=== PATIENT | male | born 2005 | race Caucasian/White ===

== ENCOUNTER 2025-01-27 08:49 | Emergency (ER) | payer MEDICAID, SELFPAY ==
[2025-01-27 09:13] VITALS: BP 124/81; PULSE 92; RESP 16; TEMP 37.4; O2SAT 98; BMI 30.5
--- NOTE | 2025-01-27 09:37 | EDNOTE_ITS ---
<Statement entered by Urvashi Callahan MD - 02/06/25 11:10> As co-signing physician, I was present and available for consult prn. I concur with the plan and care as documented by the midlevel provider. ED Animal Bite RME/HPI General Chief Complaint: Animal Bite Stated Complaint: CAT BITE Time Seen by Provider: 01/27/25 08:59 Arrival date/time: 01/27/25 08:49 20-year-old male presents to the emergency department a stating he was cleaning out a house and grabbed onto a cat when he grabbed the cat it bit him patient reports that he went to the primary care doctor today they gave him tetanus vaccination as well as a prescription for antibiotics and told him to come to the ER for possible rabies vaccinations. Limitations: no limitations Related Data Allergies Allergy/AdvReac Type Severity Reaction Status Date / Time No Known Allergies Allergy Unknown Uncoded 01/27/25 08:51 Review of Systems Review of Systems Systems Reviewed: All systems reviewed, normal except as documented Constitutional Constitutional: Reports system reviewed and no additional complaints, except as documented, Denies fever(s) and Denies headache(s) Eyes Eyes: Reports system reviewed and no additional complaints, except as documented and Denies blurry vision ENT Ears, Nose, Mouth, and Throat: Reports system reviewed and no additional complaints, except as documented, Denies headache(s), Denies nasal congestion and Denies nasal discharge Cardiovascular Cardiovascular: Reports system reviewed and no additional complaints, except as documented, Denies chest pain and Denies dyspnea Respiratory Respiratory: Reports system reviewed and no additional complaints, except as documented, Denies chest congestion, Denies cough and Denies dyspnea Gastrointestinal Gastrointestinal: Reports system reviewed and no additional complaints, except as documented and Denies abdominal pain Integumentary/Breasts Skin/Breast: Reports system reviewed and no additional complaints, except as documented, Denies rash and Reports other (Erythema left arm, cat bite) Neurologic Neurologic: Reports system reviewed and no additional complaints, except as doc umented, Reports as per HPI and Denies headache(s) Past Medical History Social History SMOKING STATUS: Never smoker ED Exam General Limitations: Present no limitations General appearance: Present alert and in no apparent distress Head Head exam: Present atraumatic Eye Eye exam: Present normal appearance, PERRL and EOMI ENT ENT exam: Present normal exam, normal oropharynx and mucous membranes moist Neck Neck exam: Present normal inspection, full ROM and trachea midline Chest Chest inspection: Present normal inspection and symmetric chest wall rise Respiratory Respiratory exam: Present normal lung sounds bilaterally Cardiovascular Cardiovascular exam: Present regular rate, normal rhythm and normal heart sounds Abdominal Exam Abdominal exam: Present soft and normal bowel sounds Extremities Exam Extremities exam: Present normal inspection and full ROM Back Exam Back exam: Present normal inspection and full ROM Neurological Exam Neurological exam: Present alert, oriented X3, CN II-XII intact, normal gait and reflexes normal; Absent motor sensory deficit Psychiatric Psychiatric exam: Present normal affect and normal mood Skin Skin exam: Present warm, dry and other (Erythema left arm, cat bite) Course Quality Measures none Orders Category Date Time Status Lidocaine 1% 20 ml [Xylocaine 1% 20 ML] Med 01/27/25 09:23 Discontinued 2.1 ml INFL X1 ONE cefTRIAXone [Rocephin] Med 01/27/25 09:23 Discontinued 1,000 mg IM X1 ONE Vital Signs Vital signs: Vital Signs Temperature 99.3 F 01/27/25 09:13 Pulse Rate 92 01/27/25 09:13 Respiratory Rate 16 01/27/25 09:13 Blood Pressure 124/81 01/27/25 09:13 Pulse Oximetry (%) 98 01/27/25 09:13 Oxygen Delivery Method Room Air 01/27/25 09:13 O2 saturation 98% room air within normal limits Animal Bite MDM Narrative MDM Narrative:: 20-year-old male presents to the emergency department a stating he was cleaning out a house and grabbed onto a cat when he grabbed the cat it bit him patient reports that he went to the primary care doctor today they gave him tetanus vaccination as well as a prescription for antibiotics and told him to come to the ER for possible rabies vaccinations. On exam patient peers of a cat bite to the left wrist redness is not circumferential I did have a discussion about rabies vaccinations patient declined rabies vaccinations today. I did order a Rocephin shot but patient also refused the Rocephin shot Explained to the patient that cat bites can become infected if symptoms persist or worsen must return immediately for evaluation Patient data External records reviewed:: [facility] [place] previous records Clinical information provided by:: patient Social determinants that could affect healthcare access:: none Patient has the following chronic illnesses:: None How is presenting disease/condition affected by chronic disease/condition?: no chronic disease Evaluation data The following diagnostics were reviewed and interpreted by me:: other (specify) Lab and/or radiology exams considered but not ordered:: Considered not indicated Interpretation Summary: N/A Medications / Prescriptions Medications or Prescriptions considered but not ordered:: Given Medication administrations:: Medication Administration History Discontinued Medications Ceftriaxone Sodium (Ceftriaxone Sod Inj 1,000 Mg Vial) 1,000 mg IM X1 ONE Stop: 01/27/25 09:24 Last Admin: 01/27/25 09:45 Dose: Not Given Documented By: SUMANTH Non-Admin Reason: Patient Refused Lidocaine HCl (Lidocaine Hcl 1% 20 Ml Vial) 2.1 ml INFL X1 ONE Stop: 01/27/25 09:24 Last Admin: 01/27/25 09:45 Dose: Not Given Documented By: SUMANTH Non-Admin Reason: Patient Refused Given Consultations Consultation(s) initiated? (list below): No Diagnosis Differential diagnosis animal bite: bite by animal, cat bite and rabies contact Most likely diagnosis given after review of the tests above:: Cat bite Admission Indicated Admission indicated?: not indicated Admission Request Was there a request for admission?: No Disposition Plan Disposition Plan: Discharge Discharge Attestation Discharge Attestation: The patient and all family members were given an opportunity to ask questions and understood the discharge instructions. Discharge instructions specifically effects, indications for sooner follow up or return to the emergency department, and the expected course of current diagnosis. Patient condition: Stable Discharge Plan Plan Patient Disposition: HOME (Self Care) Discharge Disposition comment: Stable Problem List Clinical Impression: Cat bite Patient/Caregiver Discharge Instructions Education Materials: ED Cat Bite Additional Instructions: Cat bites have the potential become worse rapidly should your symptoms persist or worsen please return for reevaluation Please take your antibiotics prescribed by your doctor Print Language: Azeri Stand Alone Forms: Emani Award Info., Work/School Release, Patient Portal Info Letter NIA/BOB Supervising Physician NIA/BOB Supervising Physician: dr callahan
== END 2025-01-27 09:47 | disposition home or self-care (01) ==
PROVIDERS: Emergency Provider Emergency Medicine; PCP Physician Assistant
DX: S41.152A Open bite of left upper arm, initial encounter (principal); W55.01XA Bitten by cat, initial encounter
CPT/HCPCS: 99281

== ENCOUNTER 2025-01-28 10:31 | Emergency (ER) | payer MEDICAID, SELFPAY ==
[2025-01-28 10:34] VITALS: BMI 30.4
[2025-01-28 10:47] VITALS: BP 117/75; PULSE 80; RESP 17; TEMP 36.9; O2SAT 96
--- NOTE | 2025-01-28 10:58 | PD.EDADULT ---
ED General RME/HPI General Chief complaint: General Adult/Misc Complain Stated complaint: Inquiring about RABIES SHOT, SEEN YESTERDAY Time Seen by Provider: 01/28/25 10:32 Arrival date/time: 01/28/25 10:31 20-year-old male presents to the emergency department today patient was seen by myself yesterday for a cat bite patient returns today to discuss rabies vaccinations and pros and cons of the medication Limitations: no limitations Related Data Allergies Allergy/AdvReac Type Severity Reaction Status Date / Time No Known Allergies Allergy Verified 01/28/25 10:34 Review of Systems Review of Systems Systems Reviewed: All systems reviewed, normal except as documented Constitutional Constitutional: Reports system reviewed and no additional complaints, except as documented, Denies fever(s) and Denies headache(s) Eyes Eyes: Reports system reviewed and no additional complaints, except as documented and Denies blurry vision ENT Ears, Nose, Mouth, and Throat: Reports system reviewed and no additional complaints, except as documented, Denies headache(s), Denies nasal congestion and Denies nasal discharge Cardiovascular Cardiovascular: Reports system reviewed and no additional complaints, except as documented, Denies chest pain and Denies dyspnea Respiratory Respiratory: Reports system reviewed and no additional complaints, except as documented, Denies chest congestion, Denies cough and Denies dyspnea Gastrointestinal Gastrointestinal: Reports system reviewed and no additional complaints, except as documented and Denies abdominal pain Integumentary/Breasts Skin/Breast: Reports system reviewed and no additional complaints, except as documented, Denies rash and Reports wounds (Mild erythema, cat bite left wrist) Neurologic Neurologic: Reports system reviewed and no additional complaints, except as documented, Reports as per HPI and Denies headache(s) Past Medical History Social History SMOKING STATUS: Never smoker ED Exam General Limitations: Present no limitations General appearance: Present alert and in no apparent distress Head Head exam: Present atraumatic Eye Eye exam: Present normal appearance, PERRL and EOMI ENT ENT exam: Present normal exam, normal oropharynx and mucous membranes moist Neck Neck exam: Present normal inspection, full ROM and trachea midline Chest Chest inspection: Present normal inspection and symmetric chest wall rise Respiratory Respiratory exam: Present normal lung sounds bilaterally Cardiovascular Cardiovascular exam: Present regular rate, normal rhythm and normal heart sounds Abdominal Exam Abdominal exam: Present soft and normal bowel sounds Extremities Exam Extremities exam: Present full ROM, tenderness and normal capillary refill; Absent joint swelling Back Exam Back exam: Present normal inspection and full ROM Neurological Exam Neurological exam: Present alert, oriented X3 and CN II-XII intact Psychiatric Psychiatric exam: Present normal affect and normal mood Skin Skin exam: Present warm, dry, intact and normal color Course Quality Measures none Vital Signs Vital signs: Vital Signs Temperature 98.5 F 01/28/25 10:47 Pulse Rate 80 01/28/25 10:47 Respiratory Rate 17 01/28/25 10:47 Blood Pressure 117/75 01/28/25 10:47 Pulse Oximetry (%) 96 01/28/25 10:47 Oxygen Delivery Method Room Air 01/28/25 10:47 O2 saturation 98% room air within normal limits Discharge Plan Plan Patient Disposition: HOME (Self Care) Discharge Disposition comment: Stable Problem List Clinical Impression: Cat bite Patient/Caregiver Discharge Instructions Education Materials: ED Cat Bite Additional Instructions: Please follow up with your primary care doctor in the next 24-48hrs for any worsening symptoms return here immediately Print Language: French Stand Alone Forms: Emani Award Info., Patient Portal Info Letter PA/AUTO SERVICE WRITER Supervising Physician PA/AUTO SERVICE WRITER Supervising Physician: Dr. denson [facility] Narrative MDM hospital course: 20-year-old male presents to the emergency department today patient was seen by myself yesterday for a cat bite patient returns today to discuss rabies vaccinations and pros and cons of the medication Patient reports a stating he was cleaning out a house and grabbed onto a cat when he grabbed the cat it bit him patient reports that he went to the primary care doctor today they gave him tetanus vaccination as well as a prescription for antibiotics and told him to come to the ER for possible rabies vaccinations. On exam patient peers of a cat bite to the left wrist redness is not circumferential I did have a discussion about rabies vaccinations patient declined rabies vaccinations today. Patient symptoms have improved since Explained to the patient that cat bites can become infected if symptoms persist or worsen must return immediately for evaluation Clinical Information Provided by patient Medical Records Reviewed [facility] Meds/Rx Considered, not Ordered None Labs/Rad/Tests considered, not Ordered None Chronic Illness/Social Conditions which may negatively complicate care or outcome(s)-explain: None or not applicable EKG EKG not done Lab Interpretation Labs: none Imaging Imaging interpretation: none Medication Administration(s) Given Diagnosis Differential diagnosis: Cat bite, abrasion, laceration Differential dx and/or dx ruled out: Cat bite Dispositon Disposition: Discharge Home
== END 2025-01-28 11:06 | disposition home or self-care (01) ==
LOC: SERX 11:03
PROVIDERS: Emergency Provider Family Medicine
DX: S61.552A Open bite of left wrist, initial encounter (principal); W55.01XA Bitten by cat, initial encounter
CPT/HCPCS: 99281